=== PATIENT | male | born 1980 | race Caucasian/White ===

== ENCOUNTER 2017-12-09 00:52 | Emergency (ER) | payer OTHER ==
[~2017-12-09] VITALS: Ht 185.4 cm; Wt 117.0 kg
[~2017-12-09 00:52] MED LIST: ALBUTEROL2.5 MG/0.1 INH; DAY TIME COLD-237 ML PO; HYDROCORTISONE30 G9 RECTAL; IBUPROFEN 600600 M1 PO; LEVAQUIN 500 M500 M2 PO; LEVAQUIN 500 M500 M4 PO; MEDROLDOSEPACK PO; MUCUS-ER MAX1200 MG PO; NORCO 5-325 TA1 EACH PO; NYQUIL D COLD295 ML PO; PROAIR RESPICL90 MCG IH; PROMETH-CODEIN 65 ML PO; PROMETHAZINE-C120 ML PO; VENTOLIN HFA 1818 GM INH; ZITHROMAX250 MG NG
[2017-12-09 01:26] LABS: ABSOLUTE EOSINOPHILS 0.3 thou/uL (0.0-0.7); ABSOLUTE LYMPHOCYTES 1.7 thou/uL (0.8-5.3); ABSOLUTE MONOCYTES 0.6 thou/uL (0.0-1.2); ABSOLUTE NEUTROPHILS 1.6 thou/uL (1.6-8.1); BASOPHILS 1.1 %; HEMATOCRIT 41.2 % (42.0-52.0); HEMOGLOBIN 14.4 gm/dL (14.0-18.0); LYMPHOCYTES 39.5 %; MCH 31.2 pg (26.0-34.0); MCHC 34.9 g/dL (28.0-37.0); MCV 89.4 fL (80.0-100.0); MONOCYTES 15.3 %; MPV 8.1 fl. (7.2-11.1); NUCLEATED RBCS 0 /100WBC; PLATELET COUNT* 167 thou/uL (150-400); POLYS 38.1 %; RBC 4.61 mil/uL (4.50-6.00); RDW-CV 13.4 % (10.5-14.5); WBC 4.2 thou/uL (4.0-11.0)
[2017-12-09 01:34] LABS: ANION GAP 8 mmol/L (7-16); BUN 14 mg/dL (7-18); CALCIUM 8.4 mg/dL (8.5-10.1); CHLORIDE 104 mmol/L (98-107); CO2 27 mmol/L (21-32); CREATININE 0.9 mg/dL (0.6-1.3); GLUCOSE 113 mg/dL (70-99); POTASSIUM 3.3 mmol/L (3.5-5.1); SODIUM 139 mmol/L (136-145)
[2017-12-09 01:41] LABS: ALBUMIN 3.3 g/dL (3.4-5.0); ALKALINE PHOSPHATASE 112 U/L (46-116); LIPASE 133 U/L (73-393); SGOT 30 U/L (15-37); SGPT 35 U/L (30-65); TOTAL BILIRUBIN 0.2 mg/dL (<0.1-1.0); TOTAL PROTEIN 6.9 g/dL (6.4-8.2); TROPONIN-I LEVEL <0.06 ng/mL (<0.06)
[2017-12-09] MEDS ORDERED: CARAFATE 1 GM TA1 G1 PO (02:42)
[2017-12-09 02:57] VITALS: BP 107/65
--- NOTE | 2017-12-09 11:03 | EKG ---
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1980 Requested By: Halima Hendricks Order Number: [id number] MD: Geovany Coello Measurements Intervals [place] Rate: 61 P: 7 HI: 160 QRS: -6 QRSD: 118 T: 1 QT: 404 QTc: 407 Interpretive Statements Sinus rhythm Incomplete right bundle branch block ST elev, probable normal early repol pattern Compared to ECG 01/13/2016 18:40:42 no change Electronically Signed On 12-09-2017 11:03:13 CDT by Geovany Coello [email or web address] <ELECTRONICALLY SIGNED> By: Geovany Coello MD, [facility] 12/09/17 1103 0056 [id number] Geovany Coello MD, [facility] /EPI
== END 2017-12-09 02:57 | disposition home or self-care (01) ==
LOC: M.ERS 00:52
PROVIDERS: Personal Emergency Response Attendant
DX: K21.9 Gastro-esophageal reflux disease without esophagitis (principal); F17.210 Nicotine dependence, cigarettes, uncomplicated; Z88.0 Allergy status to penicillin; Z87.01 Personal history of pneumonia (recurrent)

== ENCOUNTER 2020-11-10 17:53 | Emergency (ER) | payer OTHER ==
[~2020-11-10] VITALS: Ht 185.4 cm; Wt 113.4 kg
[~2020-11-10 17:53] MED LIST changes: +CARAFATE 1 GM TA1 G1 PO
[2020-11-10 18:02] VITALS: BP 133/79
[2020-11-10] MEDS ORDERED: LEXAPRO20 MG PO (18:04)
[2020-11-10] MEDS ORDERED: CLEOCIN HCL300 MG PO (18:10)
[2020-11-10] MEDS ORDERED: HYDROCODON-ACE1 EAC7 PO (18:10)
== END 2020-11-10 18:16 | disposition home or self-care (01) ==
LOC: M.ERS 17:53
DX: K08.89 Other specified disorders of teeth and supporting structures (principal); G89.18 Other acute postprocedural pain; F17.210 Nicotine dependence, cigarettes, uncomplicated; Z98.890 Other specified postprocedural states